=== PATIENT | female | born 1960 | race Caucasian/White ===

== ENCOUNTER → 2024-09-04 16:06 | Outpatient (REF) | payer MEDICARE, BC, SELFPAY | LOC: HWRAD 16:06 | PROVIDERS: ATTENDING PHYSICIAN Family Medicine | DX: M25.512 Pain in left shoulder (principal); R06.02 Shortness of breath | CPT/HCPCS: 71046; 73030 ==

== ENCOUNTER → 2025-01-20 13:37 | Outpatient (REF) | payer MEDICARE, BC, SELFPAY | LOC: HWWDC 13:37 | PROVIDERS: ATTENDING PHYSICIAN Family Medicine | DX: Z12.31 Encounter for screening mammogram for malignant neoplasm of breast (principal) | CPT/HCPCS: 77063; 77067 ==

== ENCOUNTER → 2025-02-06 15:20 | Outpatient (REF) | payer MEDICARE, BC, SELFPAY | LOC: HWRCS 15:20 | PROVIDERS: ATTENDING PHYSICIAN Family Medicine | DX: I35.9 Nonrheumatic aortic valve disorder, unspecified (principal) | CPT/HCPCS: 93306 ==